=== PATIENT | male | born 2000 | race American Indian/Alaskan Native ===

== ENCOUNTER 2022-02-10 21:46 | Emergency (ER) | payer SELFPAY ==
[2022-02-10 23:30] LABS: ANION GAP 15.8 mEq/L (7-13); CHLORIDE,CL 104 mmol/L (98-107); SODIUM,NA 141 mmol/L (136-145)
== END 2022-02-11 00:24 | disposition home or self-care (01) ==
LOC: DL.ED 21:46
DX: R07.9 Chest pain, unspecified (principal); I10 Essential (primary) hypertension; Z79.899 Other long term (current) drug therapy; Z72.0 Tobacco use
CPT/HCPCS: 36415; 71045; 80053; 83605; 84443; 84484; 85025; 93005; 93010; 99285; 99285-25